=== PATIENT | male | born 1990 | race Caucasian/White ===

== ENCOUNTER → 2018-07-02 | Outpatient (CLI) | payer OTHER ==
--- NOTE | 2018-07-03 11:30 | MRI ---
EXAM DESCRIPTION: Thoracic Spine w/o Contrast: Magnetic Resonance Imaging. CLINICAL HISTORY: BACK PAIN. Thoracolumbar junction. COMPARISON: None. TECHNIQUE: Multiplanar, multiple standard sequences, non contrast MRI, thoracic spine. FINDINGS: Posterior midline T6-T7 bulge abutting the cord with no compression. No canal or foraminal stenosis. Minimal disc desiccation. Minimal disc desiccation at T5-6 but no canal or foraminal narrowing. Normal signal in the T2-3 disc with minimal posterior bulge abutting the cord. No canal or foraminal stenosis. Minimal disc desiccation T7-8 with small bulge to the left midline but no cord impingement. Canal and foramina are patent. T8-T9 disc with minimal bulge to the left of midline abutting the cord but no impingement or compression. Canal and foramina are patent. Posterior bulge of the T9-10 disc in the midline with minimal hypertrophy of the T9 endplate abutting the cord. Minimal hypertrophy in the right facet and narrowing of the foramen. No significant canal narrowing with no foraminal stenosis. T10-11 disc space narrowing with minimal desiccation. Tiny posterior bulge to the left of midline. Small Schmorl's nodes posterior endplates on the left. Narrowing of the left foramen. No canal or foraminal stenosis. Normal signal in the discs from T12-L1 to L2-3. No significant bulging. Disc spaces are maintained. No canal or foraminal stenosis. Remaining discs with normal signal. Disc spaces are preserved. Canal and foramina are patent. No scoliosis. Facet joints are unremarkable. Conus terminates at T12. Normal signal in the conus and the remainder of the cord. Paravertebral soft tissues are unremarkable. Normal marrow signal in the vertebral bodies and the posterior elements. Vertebral bodies are not compressed at any level. IMPRESSION: Multiple levels of minimal disc bulging in the mid and lower thoracic spine. No herniated discs. No canal or foraminal stenosis at any level. No cord compression at any level. Included lumbar discs and disc spaces are unremarkable with no canal or foraminal stenosis. Electronically signed by: Carl Cueva MD 07/03/2018 11:29 AM [facility]
== END ==
LOC: MRI 11:38
PROVIDERS: ATTEND Orthopaedic Surgery
DX: M51.84 Other intervertebral disc disorders, thoracic region (principal)

== ENCOUNTER → 2018-09-29 | Outpatient (CLI) | payer OTHER | LOC: GMAM 15:25 | PROVIDERS: ATTEND Family Medicine | DX: N41.0 Acute prostatitis (principal) ==

== ENCOUNTER → 2018-12-11 | Outpatient (CLI) | payer OTHER ==
--- NOTE | 2018-12-12 09:22 | CT ---
EXAM DESCRIPTION: Abdomen/Pelvis w/wo Contrast: Computed Tomography. CLINICAL HISTORY: FLANK PAIN, HEMATURIA MICROSCOPIC COMPARISON: None. TECHNIQUE: Spiral-axial scans at 5 x 5 mm intervals through the abdomen and pelvis before and after standard dose nonionic IV contrast. No oral contrast. Coronal and sagittal 2.0 mm reconstructions. 5 mm Delayed helical-axial scans, liver through the pubic symphysis. No adverse reactions. Total Exam DLP 1157.02 mGy - cm. This exam was performed according to our departmental CT dose-optimization program which includes automated exposure control, adjustment of the mA and/or kV according to patient size and/or use of iterative reconstruction technique; to reduce radiation dose to as low as reasonably achievable (ALARA). FINDINGS: Lung bases and pleura: Negative. Liver, Stomach, Spleen, Adrenal Glands: Stomach is minimally distended. Solid organs are negative. Pancreas, Gallbladder, Ducts: The bladder visualized. No fluid. Normal caliber of the duct. Pancreas negative. Kidneys and Ureters: 2 mm radiodense stone or calcification/gravel in the upper pole of the left kidney with no evidence of obstruction. Normal density of the right kidney. Normal enhancement bilaterally with no hydronephrosis or perirenal fluid. Bilateral ureters normal caliber.. Mesentery: No free air or free fluid. No fatty stranding or fascial thickening. Aorta: Unremarkable. Small Bowel: Normal caliber. Terminal Ileum/Cecum: Normal caliber of the TI. Cecum distended by fecal matter. Normal caliber of the appendix. Normal density of the surrounding fat. Colon: Distention of the ascending colon by fecal matter. Minimal feces with gas in the transverse colon and the distal transverse colon down to the rectosigmoid is decompressed. Minimal redundancy of the sigmoid colon with no complications. Pelvic Organs: Urinary bladder is distended with no wall thickening and no radiodense stones. Does not contain enough IV contrast to evaluate the mucosa. Prostate gland is abutting the base of the bladder and the seminal vesicles. No free fluid. Spine and Bony Pelvis: Minimal narrowing of L5-S1 disc space with posterior bulge of the disc and small endplate spurs. Abdominal Wall/Back Soft Tissues: Minimal defect in the left rectus abdominis muscle at the level of the gallbladder and spleen. No mass. IMPRESSION: Radiodense stones or gravel upper collecting system left kidney with no obstruction. Right kidney and ureters and urinary bladder unremarkable. Moderate constipation of the proximal colon including the cecum. Minimal narrowing of the L5-S1 disc space with posterior disc bulge. Electronically signed by: Carl Cueva MD 12/12/2018 9:19 AM CDT
== END ==
LOC: CT 09:21
PROVIDERS: ATTEND Urology
DX: K59.00 Constipation, unspecified (principal); M51.86 Other intervertebral disc disorders, lumbar region; R31.29 Other microscopic hematuria

== ENCOUNTER → 2019-11-04 | Outpatient (CLI) | payer OTHER | DX: M54.2 Cervicalgia (principal) ==